=== PATIENT | male | born 1945 | race Native Hawaiian/Other Pacific Islander ===

== ENCOUNTER 2016-09-13 17:00 | Inpatient (IN) | payer OTHER ==
[~2016-09-13] VITALS: Ht 167.6 cm; Wt 98.1 kg
[2016-09-13 17:00] VITALS: BP 192/113; TEMP 99.8
[2016-09-13] MEDS ORDERED: ASPIRIN LOW81 MG PO (17:12)
[2016-09-13] MEDS ORDERED: METOPROLOL25 M1 PO (17:13)
[2016-09-13] MEDS ORDERED: SIMV40TA57 PO (17:13)
[2016-09-13] MEDS ORDERED: METFTAB PO (17:13)
[2016-09-13] MEDS ORDERED: ELIQUIS5 MG PO (17:13)
[2016-09-13 17:48] LABS: PLATELET COUNT 160 K/uL (142-355)
[2016-09-13 17:58] LABS: POTASSIUM 4.1 mmol/L (3.6-5.2)
[2016-09-13 18:00] VITALS: BP 147/84
[2016-09-13 23:47] VITALS: BP 173/71; TEMP 98; Ht 167.6 cm; Wt 98.1 kg
[2016-09-14 04:00] VITALS: BP 135/54; TEMP 98.6
[2016-09-14 07:58] VITALS: BP 130/55; TEMP 98.4
[2016-09-14 09:52] LABS: PLATELET COUNT 133 K/uL (142-355)
[2016-09-14 10:06] LABS: POTASSIUM 3.8 mmol/L (3.6-5.2)
[2016-09-14 12:00] VITALS: BP 141/71; TEMP 98
[2016-09-14 16:00] VITALS: BP 129/69; TEMP 98.7
[2016-09-14 20:00] VITALS: BP 125/72; TEMP 99.3
[2016-09-15] VITALS: BP 116/75; TEMP 98.6
[2016-09-15 04:00] VITALS: BP 108/62; TEMP 98.2
[2016-09-15 08:00] VITALS: BP 151/90; TEMP 97.8
[2016-09-15 09:25] LABS: POTASSIUM 3.6 mmol/L (3.6-5.2); SODIUM 127 mmol/L (136-145)
[2016-09-15 09:45] LABS: PLATELET COUNT 139 K/uL (142-355)
[2016-09-15 12:00] VITALS: BP 115/72; TEMP 98.6
== END 2016-09-15 18:20 | disposition home or self-care (01) | DRG 552 ==
LOC: ED 17:00 → MED/SURG 22:05
PROVIDERS: Emergency Medicine; ADMIT Emergency Medicine
DX: M54.89 Other dorsalgia (principal); M48.06 Spinal stenosis, lumbar region; R33.8 Other retention of urine; E11.9 Type 2 diabetes mellitus without complications
CPT/HCPCS: 51702; 80048; 80053; 81000; 82948; 83735; 85027; 93005; 96365; 96375; 96376; 99284; J2270; J2405; J3490